=== PATIENT | female | born 1940 | race Caucasian/White ===

== ENCOUNTER 2017-07-12 11:02 | Emergency (ER) | payer MEDICARE, OTHER ==
[~2017-07-12] VITALS: Ht 157.5 cm; Wt 65.0 kg
[2017-07-12 11:10] VITALS: BP 165/51; PULSE 54; RESP 15; TEMP 98; O2SAT 98
[2017-07-12] MEDS ORDERED: ERYTOIN10 LEFT EYE (13:15)
[2017-07-12] MEDS ORDERED: DOXY100C PO (13:15)
--- NOTE | 2017-07-12 13:17 | PD ---
HPI Chief Complaint: Eye Problems/Injury Time Seen by Provider: 12:49 Travel History International Travel<30 days: No Contact w/Intl Traveler<30days: No Traveled to known affect area: No History of Present Illness HPI This is 77-year-old female here with left upper eyelid redness, swelling 2 days. She denies injury or trauma. No visual changes. No ocular pain. Severity moderate. No aggravating or alleviating factors. PFSH Past Medical History Diminished Hearing: No Hypertension: Yes Tetanus Vaccination: Unknown Influenza Vaccination: Yes ?: Not Past Surgical History Hysterectomy: Yes Tonsillectomy: Yes Social History Alcohol Use: Yes (wine with dinner) Tobacco Use: No Substance Use: No Allergies-Medications (Allergen,Severity, Reaction): Coded Allergies: No Known Allergies (Unverified , 07/12/17) Review of Systems Except as stated in HPI: all other systems reviewed are Neg General / Constitutional: No: Fever Eyes: Positive: Other (left upper lid redness, swelling), No: Visual changes HENT: No: Headaches Cardiovascular: No: Chest Pain or Discomfort Respiratory: No: Shortness of Breath Gastrointestinal: No: Abdominal Pain Genitourinary: No: Dysuria Physical Exam Narrative GENERAL: Alert and well-appearing 77-year-old female SKIN: Warm and dry. HEAD: Normocephalic. EYES: No injection or drainage. Notable left upper lid erythema, swelling. Crusting noticed at eyelashes. Equal, round, reactive to light. EOMs intact. Visual acuity 20/20 NECK: Supple, trachea midline. No JVD or lymphadenopathy. Data Data Last Documented VS Vital Signs Date Time Temp Pulse Resp B/P (MAP) Pulse Ox O2 Delivery O2 Flow Rate FiO2 07/12/17 11:10 98.0 54 15 165/51 (89) 98 MDM Medical Decision Making Medical Screen Exam Complete: Yes Emergency Medical Condition: Yes Differential Diagnosis STY, BLEPHARITIS, PERIORBITAL CELLULITIS Narrative Course This is a 77-year-old female here with left upper eyelid redness and swelling 2 days. She has normal visual acuity. EOMs are painless and intact. She is instructed to follow-up with her primary doctor. Diagnosis Primary Impression: Blepharitis Qualified Codes: H01.004 - Unspecified blepharitis left upper eyelid Referrals: Primary Care Physician Additional Instructions: Doxycycline as directed. Erythromycin ophthalmic ointment as directed. [id number] Benadryl 25 mg 1 tab every 6 hours as needed for itching. Follow-up with her primary doctor for recheck in 2 days Scripts Doxycycline Hyclate (Doxycycline Hyclate) 100 Mg Cap 100 MG PO BID for Infection for 7 Days, #14 CAP 0 Refills Prov: Amairani Ramachandran 07/12/17 Erythromycin Opth Oint (Erythromycin Opth Oint) 5 Mg/Gm Oint 1 APPLIC LEFT EYE QID for Infection, #1 TUBE 0 Refills Prov: Amairani Ramachandran 07/12/17 Disposition: 01 DISCHARGE HOME Condition: Stable Amairani Ramachandran Jul 12, 2017 13:17
== END 2017-07-12 13:20 | disposition home or self-care (01) ==
LOC: PHEFT 11:02
DX: H01.004 Unspecified blepharitis left upper eyelid (principal); I10 Essential (primary) hypertension
CPT/HCPCS: 99284